=== PATIENT | female | born 1965 | race Caucasian/White ===

== ENCOUNTER → 2016-11-16 | Outpatient (CLI) | payer BC | END | disposition home or self-care (01) | LOC: CFH 16:42 | PROVIDERS: ATTEND Nurse Practitioner Primary Care | DX: Z13.220 Encounter for screening for lipoid disorders (principal); Z00.00 Encounter for general adult medical examination without abnormal findings; Z12.4 Encounter for screening for malignant neoplasm of cervix; Z12.39 Encounter for other screening for malignant neoplasm of breast; Z12.11 Encounter for screening for malignant neoplasm of colon; R07.89 Other chest pain; R06.02 Shortness of breath; E78.2 Mixed hyperlipidemia; R53.83 Other fatigue | CPT/HCPCS: 71020 ==

== ENCOUNTER → 2016-12-05 | Outpatient (CLI) | payer BC ==
[~2016-12-05] MED LIST: REGADENOSON 0.4 MG/5 ML SYRINGE ONE
== END | disposition home or self-care (01) ==
LOC: CFH 08:44
PROVIDERS: ATTEND Nurse Practitioner Primary Care
DX: I07.1 Rheumatic tricuspid insufficiency (principal)
CPT/HCPCS: 78452; 93017; 93306; A9502; J2785